=== PATIENT | female | born 2000 | race Caucasian/White ===

== ENCOUNTER 2022-08-02 11:36 | Emergency (ER) | payer BC ==
[~2022-08-02] VITALS: Ht 154.9 cm; Wt 49.0 kg
[2022-08-02 11:59] VITALS: BP_SYST 103
[2022-08-02 14:06] LABS: STREPTOCOCCUS A SCREEN (RAPID) NEGATIVE (NEGATIVE)
[2022-08-02] MEDS ORDERED: IBUP-1969 PO (14:36)
[2022-08-02] MEDS ORDERED: BENZ100C92 PO (14:36)
--- NOTE | 2022-08-02 15:39 | NUR ---
Patient to ER bed TRIAGE to gown for evaluation. Side rails up.
--- NOTE | 2022-08-02 15:40 | NUR ---
ER at bedside examining patient.
--- NOTE | 2022-08-02 15:42 | NUR ---
No Opportunity for questions as patient left without signing or waiting for discharge instructions.
== END 2022-08-02 15:41 | disposition home or self-care (01) ==
LOC: SED 11:36
DX: J02.9 Acute pharyngitis, unspecified (principal); R05.9 Cough, unspecified; R09.81 Nasal congestion; Z79.899 Other long term (current) drug therapy; Z20.822 Contact with and (suspected) exposure to COVID-19
CPT/HCPCS: 36415; 86403; 87081; 99283